=== PATIENT | male | born 1990 | race African-American/Black ===

== ENCOUNTER 2020-11-22 20:25 | Emergency (ER) | payer OTHER ==
[~2020-11-22] VITALS: Ht 162.6 cm; Wt 69.0 kg
[2020-11-22] MEDS ORDERED: TETANUS, DIPHTHERIA, PERTUSSIS VAC/PF 0.5ML (>7YR OLD) IM ONE (21:15)
[2020-11-22 21:38] VITALS: BP 125/81
== END 2020-11-22 21:38 | disposition home or self-care (01) ==
LOC: ER 20:25
DX: S60.511A Abrasion of right hand, initial encounter (principal); R45.1 Restlessness and agitation; Y08.89XA Assault by other specified means, initial encounter; Y93.89 Activity, other specified; Y92.89 Other specified places as the place of occurrence of the external cause; Y99.8 Other external cause status
CPT/HCPCS: 90471; 90715; 99281; 99283

== ENCOUNTER 2023-01-22 08:39 | Emergency (ER) | payer MEDICAID ==
[~2023-01-22] VITALS: Ht 182.9 cm; Wt 80.0 kg
[2023-01-22 08:44] VITALS: BP 165/118
[2023-01-22] MEDS ORDERED: TETANUS, DIPHTHERIA, PERTUSSIS VAC/PF 0.5ML (>10YR OLD) IM ONE (10:15)
[2023-01-22] MEDS ORDERED: ONDANSETRON 4MG ODT PO ONE (10:15)
[2023-01-22] MEDS ORDERED: HYDROCODONE/ACETAMINOPHEN 5/325MG TABLET PO ONE (10:15)
[2023-01-22] MEDS ORDERED: IBUP-2029 MT (12:18)
[2023-01-22] MEDS ORDERED: CEPH500T MT (12:18)
== END 2023-01-22 13:19 | disposition home or self-care (01) ==
LOC: ER 08:43
DX: S00.531A Contusion of lip, initial encounter (principal); S60.222A Contusion of left hand, initial encounter; Y04.0XXA Assault by unarmed brawl or fight, initial encounter; Y93.89 Activity, other specified; Y92.89 Other specified places as the place of occurrence of the external cause; Y99.8 Other external cause status
CPT/HCPCS: 70450; 70486; 73130; 90471; 90715; 99285; Q0162

== ENCOUNTER 2025-10-20 09:23 | Emergency (ER) | payer MEDICAID ==
[~2025-10-20] VITALS: Ht 175.3 cm; Wt 75.0 kg
[~2025-10-20 09:23] MED LIST: CEPH500T MT; IBUP-1455 MT
[2025-10-20 09:27] VITALS: O2SAT 100
[2025-10-20 10:17] LABS: BASOPHILS % 1.0 % (0.0-2.0); EOSINOPHILS % 0.8 % (0.0-5.0); HEMATOCRIT. 40.6 % (42.0-52.0); HEMOGLOBIN. 13.6 g/dL (14.0-18.0); LYMPHOCYTES % 26.3 % (20.0-50.0); MEAN PLATELET VOLUME 8.5 fl (7.4-10.4); MONOCYTES % 13.6 % (2.0-8.0); NEUTROPHILS % 58.3 % (40.0-76.0); PLATELET 372 x1000/uL (130-400); RED BLOOD CELL COUNT 4.66 mill/uL (4.7-6.1); RED CELL DISTRIBUTION WIDTH 15.2 % (11.6-14.6)
[2025-10-20 10:30] LABS: CREATININE 1.1 mg/dL (0.6-1.3); UREA NITROGEN BLOOD 8 mg/dL (9-23)
[2025-10-20 10:31] LABS: ETHANOL BLOOD 159 mg/dL (<10)
[2025-10-20 13:51] VITALS: BP 107/63; PULSE 80; RESP 16; TEMP 37.1; O2SAT 97
== END 2025-10-20 14:04 | disposition home or self-care (01) ==
LOC: ER 10:01
DX: F10.129 Alcohol abuse with intoxication, unspecified (principal); Z79.899 Other long term (current) drug therapy; Y90.9 Presence of alcohol in blood, level not specified
CPT/HCPCS: 36415; 80048; 80320; 85025; 99284; G0480

== ENCOUNTER 2025-11-03 12:03 | Emergency (ER) | payer MEDICAID ==
[~2025-11-03] VITALS: Ht 175.3 cm; Wt 76.0 kg
[2025-11-03 12:06] VITALS: TEMP 36.9; O2SAT 96
[2025-11-03] MEDS ORDERED: DOXY100C5 MT (15:42)
[2025-11-03 16:11] VITALS: BP 112/72; PULSE 109; RESP 16; O2SAT 99
== END 2025-11-03 16:13 | disposition home or self-care (01) ==
LOC: ER 12:03
DX: R06.02 Shortness of breath (principal); Z79.899 Other long term (current) drug therapy
CPT/HCPCS: 71045; 99283